=== PATIENT | male | born 1950 | race Caucasian/White ===

== ENCOUNTER 2016-07-12 05:59 | Emergency (ER) | payer MEDICARE ==
[2014-07-01 15:47] VITALS: BMI 21.7
[~2016-07-12 05:59] MED LIST: LISINOPRIL10 MG PO; PRILOSEC20 MG PO
== END 2016-07-12 07:25 | disposition home or self-care (01) ==
LOC: D.ER 05:59
DX: R11.10 Vomiting, unspecified (principal); R19.7 Diarrhea, unspecified; K21.9 Gastro-esophageal reflux disease without esophagitis; Z95.0 Presence of cardiac pacemaker; F17.200 Nicotine dependence, unspecified, uncomplicated

== ENCOUNTER 2017-05-19 13:39 | Emergency (ER) | payer MEDICARE ==
[2014-07-01 15:47] VITALS: BMI 21.7
== END 2017-05-19 15:38 | disposition home or self-care (01) ==
LOC: D.ER 13:39
DX: M21.241 Flexion deformity, right finger joints (principal); K21.9 Gastro-esophageal reflux disease without esophagitis; Z95.0 Presence of cardiac pacemaker

== ENCOUNTER 2017-09-02 18:55 | Emergency (ER) | payer MEDICARE ==
[2014-07-01 15:47] VITALS: BMI 21.7
[2017-09-02 19:44] LABS: BASOPHILS 0.6 % (0-2); EOSINOPHILS 3.5 % (0-7); HEMATOCRIT 41.3 % (42.0-54.0); IMMATURE GRANULOCYTES 0.2 % (0-5); LYMPHOCYTES 27.5 % (15-50); MCH 29.7 pg (26.0-34.0); MCHC 33.9 g/dL (31.0-37.0); MCV 87.5 fL (80.0-100.0); MEAN PLATELET VOLUME 10.3 fL (7.4-10.4); MONOCYTES 6.8 % (2-11); NEUTROPHILS 61.4 % (40-80); PLATELET COUNT 202 10x3/uL (130-400); RBC 4.72 10x6/uL (4.20-6.10); RDW 13.3 % (11.5-14.5); WBC 6.6 10x3/uL (4.8-10.8)
[2017-09-02 20:11] LABS: ALBUMIN 3.5 g/dL (3.4-5.0); BILIRUBIN - TOTAL 0.15 mg/dL (0.2-1.3); CALCIUM 8.7 mg/dL (8.5-10.1); CARBON DIOXIDE 28.5 mmol/L (21.0-32.0); CREATININE - SERUM 1.1 mg/dL (0.6-1.3); POTASSIUM - SERUM 3.5 mmol/L (3.5-5.1); PROTEIN - SERUM 7.3 g/dL (6.4-8.2)
[2017-09-02 21:32] LABS: APPEARANCE CLEAR (CLEAR); BACTERIA FEW /hpf (NONE SEEN); BILIRUBIN NEGATIVE (NEGATIVE); COLOR YELLOW (YELLOW); GLUCOSE NEGATIVE (NEGATIVE); KETONE NEGATIVE (NEGATIVE); NITRITE NEGATIVE (NEGATIVE); PROTEIN NEGATIVE (NEGATIVE); RED CELLS - URINE 0-5 /hpf (0-5); UROBILINOGEN NORMAL (NORMAL); WHITE CELLS - URINE 0-5 /hpf (0-5)
== END 2017-09-02 22:25 | disposition home or self-care (01) ==
LOC: D.ER 18:55
PROVIDERS: Emergency Medicine
DX: R42 Dizziness and giddiness (principal); I10 Essential (primary) hypertension; Z91.14 Patient's other noncompliance with medication regimen

== ENCOUNTER 2018-05-31 08:44 | Inpatient (IN) | payer MEDICARE ==
[~2018-05-31] VITALS: Ht 182.9 cm; Wt 77.1 kg
[2018-05-31] VITALS (9 sets, daily range): BP systolic 130–164; BP diastolic 65–90; BMI 23.1
--- NOTE | ~2018-05-31 | MORECARE ---
CASE MANAGEMENT DISCHARGE SUMMARY PATIENT: DARWIN LENTZ UNIT: [id number] ADM DATE: 05/31/18 AGE: 67 : 49 SEX: M ROOM/BED: D.1210 AUTHOR: ADRIANA CORONADO PHYSICIAN: REFERRING PHYSICIAN: YADIRA RUSSO MD DATE OF SERVICE: 06/02/18 Discharge Plan Patient Name: DARWIN LENTZ [facility] [facility] 1950 Planned Disposition: Home Anticipated Discharge Date: Discharge Date: Expected LOS: Initial Reviewer: [email or web address] Initial Review Date: 06/02/2018 Generated: 06/02/18 3:35 pm DCPIA - Discharge Planning Initial Assessment Updated by [email or web address]: Renetta Soto on 06/02/18 2:33 pm * How many steps to enter\exit or inside your home? * PCP HARLEY MALLORY * Pharmacy [facility] * Preadmission Environment Home Alone * ADLs Independent * Equipment None * List name and contact numbers for known caregivers / representatives who currently or will assist patient after discharge: ERIC GONZALEZ - DOESN'T REMEMBER NUMBER * Verbal permission to speak to the caregivers and representatives has been obtained from the patient. N/A * Community resources currently utilized None * Additional services required to return to the preadmission environment? No * Can the patient safely return to the preadmission environment? Yes * Has this patient been hospitalized within the prior 30 days at any hospital? No Patient Name: DARWIN LENTZ Page [id number] at 1435 All edits/amendments must be made on the electronic document DICTATION DATE: 06/02/18 143 RADIATION ONCOLOGY NURSE: JAD 06/02/18 1434 RPT#: [id number] MS DATE: STATUS: ADM IN [facility] [address] [place] [address] END OF REPORT
--- NOTE | ~2018-05-31 | MORECARE ---
CASE MANAGEMENT DISCHARGE SUMMARY PATIENT: DARWIN LENTZ UNIT: [id number] ADM DATE: 05/31/18 AGE: 67 : 49 SEX: M ROOM/BED: D.1210 AUTHOR: CLIFF,DOC PHYSICIAN: REFERRING PHYSICIAN: YADIRA RUSSO MD DATE OF SERVICE: 06/02/18 Discharge Plan Patient Name: DARWIN LENTZ Facility: [facility]:[place] : 1950 Planned Disposition: Home Anticipated Discharge Date: Discharge Date: Expected LOS: Initial Reviewer: [email or web address] Initial Review Date: 06/02/2018 Generated: 06/02/18 3:48 pm Comments DCP- Discharge Planning Updated by [email or web address]: Renetta Soto on 06/02/18 1:[address] Patient Name: DARWIN LENTZ Admission Status: ER Accout number: [id number] Admission Date: 05-31-2018 : 1950 Admission Diagnosis: Attending: YADIRA RUSSO Current LOS: 2 Anticipated DC Date: Planned Disposition: Home Primary Insurance: [facility] MEDICARE SOLUTIONS Discharge Planning Comments: CM met with patient at bedside. Patient states he plans on returning to his home after discharge. Patient states he lives alone. Patient denies any discharge needs at this time. CM will continue to follow and assist with discharge planning / needs. Material Control Clerk: Renetta Soto DCPIA - Discharge Planning Initial Assessment Updated by [email or web address]: Renetta Soto on 06/02/18 2:33 pm * How many steps to enter\exit or inside your home? * PCP HARLEY MALLORY * Pharmacy [facility] * Preadmission Environment Home Alone * ADLs Independent * Equipment None * List name and contact numbers for known caregivers / representatives who currently or will assist patient after discharge: ERIC GONZALEZ - DOESN'T REMEMBER NUMBER * Verbal permission to speak to the caregivers and representatives has been obtained from the patient. N/A * Community resources currently utilized None * Additional services required to return to the preadmission environment? No * Can the patient safely return to the preadmission environment? Yes * Has this patient been hospitalized within the prior 30 days at any hospital? No Last DP export: 06/02/18 1:35 Patient Name: DARWIN LENTZ Page [id number] at 1448 All edits/amendments must be made on the electronic document DICTATION DATE: 06/02/181446 RAILROAD BRAKEMAN: JAD 06/02/181446 RPT#: [id number] DC DATE: STATUS: ADM IN [facility] [address] [place] [address] END OF REPORT
--- NOTE | ~2018-05-31 | MORECARE ---
CASE MANAGEMENT DISCHARGE SUMMARY PATIENT: DARWIN LENTZ UNIT: [id number] ADM DATE: 05/31/18 AGE: 67 : 49 SEX: M ROOM/BED: D.1210 AUTHOR: CLIFF,DOC PHYSICIAN: REFERRING PHYSICIAN: YADIRA RUSSO MD DATE OF SERVICE: 06/05/18 Discharge Plan Patient Name: DARWIN LENTZ Facility: [facility]:[place] : 1950 Planned Disposition: Home Anticipated Discharge Date: Discharge Date: 06/04/2018 Expected LOS: Initial Reviewer: [email or web address] Initial Review Date: 06/02/2018 Generated: 06/05/18 10:22 am Comments DCP- Discharge Planning Updated by [email or web address]: Renetta Soto on 06/02/18 1:[address] Patient Name: DARWIN LENTZ Admission Status: ER Accout number: [id number] Admission Date: 05-31-2018 : 1950 Admission Diagnosis: Attending: YADIRA RUSSO Current LOS: 2 Anticipated DC Date: Planned Disposition: Home Primary Insurance: [facility] MEDICARE SOLUTIONS Discharge Planning Comments: CM met with patient at bedside. Patient states he plans on returning to his home after discharge. Patient states he lives alone. Patient denies any discharge needs at this time. CM will continue to follow and assist with discharge planning / needs. Stoneworker: Renetta Soto DCPIA - Discharge Planning Initial Assessment Updated by [email or web address]: Renetta Soto on 06/02/18 2:33 pm * How many steps to enter\exit or inside your home? * PCP HARLEY MALLORY * Pharmacy [facility] * Preadmission Environment Home Alone * ADLs Independent * Equipment None * List name and contact numbers for known caregivers / representatives who currently or will assist patient after discharge: ERIC GONZALEZ - DOESN'T REMEMBER NUMBER * Verbal permission to speak to the caregivers and representatives has been obtained from the patient. N/A * Community resources currently utilized None * Additional services required to return to the preadmission environment? No * Can the patient safely return to the preadmission environment? Yes * Has this patient been hospitalized within the prior 30 days at any hospital? No Last DP export: 06/02/18 1:48 Patient Name: DARWIN LENTZ Page [id number] at 0922 All edits/amendments must be made on the electronic document DICTATION DATE: 06/05/18920 PRIMARY HEALTH CARE NURSE: JAD 06/05/18920 RPT#: [id number] DC DATE:06/04/18 STATUS: DIS IN [facility] [address] [place] [address] END OF REPORT
[2018-05-31 10:20] LABS: BASOPHILS 0.2 % (0-2); EOSINOPHILS 0.4 % (0-7); HEMATOCRIT 45.8 % (42.0-54.0); HEMOGLOBIN 15.7 g/dL (13.5-17.5); IMMATURE GRANULOCYTES 0.2 % (0-5); LYMPHOCYTES 9.3 % (15-50); MCH 30.7 pg (26.0-34.0); MCHC 34.3 g/dL (31.0-37.0); MCV 89.5 fL (80.0-100.0); MEAN PLATELET VOLUME 10.8 fL (7.4-10.4); MONOCYTES 5.8 % (2-11); NEUTROPHILS 84.1 % (40-80); PLATELET COUNT 222 10x3/uL (130-400); RBC 5.12 10x6/uL (4.20-6.10); WBC 10.1 10x3/uL (4.8-10.8)
[2018-05-31 10:33] LABS: ALBUMIN 3.7 g/dL (3.4-5.0); ALKALINE PHOSPHATASE 78 U/L (46-116); ALT (SGPT) 35 U/L (10-68); BILIRUBIN - TOTAL 0.35 mg/dL (0.2-1.3); CALC OSMOLALITY 278 mosm/kg (275-300); CALCIUM 9.7 mg/dL (8.5-10.1); CARBON DIOXIDE 30.3 mmol/L (21.0-32.0); CHLORIDE - SERUM 105 mmol/L (98-107); GLUCOSE 134 mg/dL (74-106); POTASSIUM - SERUM 3.9 mmol/L (3.5-5.1); PROTEIN - SERUM 7.9 g/dL (6.4-8.2); SODIUM 137 mmol/L (136-145); UREA NITROGEN 21 mg/dL (7-18); eGFR NON AFRICAN AMERICAN 79 mL/min (90-120)
[2018-05-31 10:36] LABS: AMYLASE - SERUM 54 U/L (25-115); LIPASE 186 U/L (73-393); TROPONIN-I < 0.017 ng/mL (0.000-0.060)
[2018-06-01 04:00] VITALS: BP 145/79
[2018-06-01 06:54] LABS: BASOPHILS 0.1 % (0-2); EOSINOPHILS 0.7 % (0-7); HEMATOCRIT 41.6 % (42.0-54.0); HEMOGLOBIN 13.7 g/dL (13.5-17.5); IMMATURE GRANULOCYTES 0.1 % (0-5); LYMPHOCYTES 14.7 % (15-50); MCH 29.8 pg (26.0-34.0); MCHC 32.9 g/dL (31.0-37.0); MCV 90.4 fL (80.0-100.0); MEAN PLATELET VOLUME 10.6 fL (7.4-10.4); MONOCYTES 10.8 % (2-11); NEUTROPHILS 73.6 % (40-80); PLATELET COUNT 205 10x3/uL (130-400); RDW 14.3 % (11.5-14.5)
[2018-06-01 07:08] LABS: APTT 28.2 SECONDS (22.8-39.4); INR 1.07 (0.85-1.17); PROTIME 13.6 SECONDS (11.6-15.0)
[2018-06-01 07:15] VITALS: BP 131/67
[2018-06-01 07:37] LABS: ALBUMIN 3.1 g/dL (3.4-5.0); ALKALINE PHOSPHATASE 64 U/L (46-116); ALT (SGPT) 28 U/L (10-68); BILIRUBIN - TOTAL 0.42 mg/dL (0.2-1.3); CALC OSMOLALITY 287 mosm/kg (275-300); CALCIUM 8.5 mg/dL (8.5-10.1); CARBON DIOXIDE 27.7 mmol/L (21.0-32.0); CHLORIDE - SERUM 108 mmol/L (98-107); GLUCOSE 118 mg/dL (74-106); POTASSIUM - SERUM 3.8 mmol/L (3.5-5.1); PROTEIN - SERUM 6.7 g/dL (6.4-8.2); SODIUM 143 mmol/L (136-145); UREA NITROGEN 18 mg/dL (7-18); eGFR NON AFRICAN AMERICAN 79 mL/min (90-120)
[2018-06-01 07:38] LABS: APPEARANCE HAZY (CLEAR); BILIRUBIN NEGATIVE (NEGATIVE); COLOR YELLOW (YELLOW); GLUCOSE NEGATIVE (NEGATIVE); KETONE NEGATIVE (NEGATIVE); NITRITE NEGATIVE (NEGATIVE); PROTEIN NEGATIVE (NEGATIVE); SPECIFIC GRAVITY 1.015 (1.005-1.020); UROBILINOGEN NORMAL (NORMAL)
[2018-06-01 11:15] VITALS: BP 143/78
[2018-06-01 15:37] VITALS: BP 150/75
[2018-06-01 19:38] VITALS: BP 155/79
[2018-06-02] VITALS: BP 138/69
[2018-06-02 04:00] VITALS: BP 140/65
[2018-06-02 06:43] LABS: BASOPHILS 0.4 % (0-2); EOSINOPHILS 1.7 % (0-7); HEMATOCRIT 38.4 % (42.0-54.0); HEMOGLOBIN 12.8 g/dL (13.5-17.5); IMMATURE GRANULOCYTES 0.1 % (0-5); LYMPHOCYTES 15.4 % (15-50); MCH 29.7 pg (26.0-34.0); MCHC 33.3 g/dL (31.0-37.0); MCV 89.1 fL (80.0-100.0); MEAN PLATELET VOLUME 10.4 fL (7.4-10.4); MONOCYTES 11.2 % (2-11); NEUTROPHILS 71.2 % (40-80); PLATELET COUNT 185 10x3/uL (130-400); RBC 4.31 10x6/uL (4.20-6.10); RDW 13.9 % (11.5-14.5); WBC 7.1 10x3/uL (4.8-10.8)
[2018-06-02 07:15] LABS: CALC OSMOLALITY 281 mosm/kg (275-300); CARBON DIOXIDE 24.9 mmol/L (21.0-32.0); CHLORIDE - SERUM 108 mmol/L (98-107); CREATININE - SERUM 0.9 mg/dL (0.6-1.3); GLUCOSE 96 mg/dL (74-106); POTASSIUM - SERUM 3.6 mmol/L (3.5-5.1); SODIUM 141 mmol/L (136-145); UREA NITROGEN 16 mg/dL (7-18); eGFR NON AFRICAN AMERICAN 89 mL/min (90-120)
[2018-06-02 08:02] VITALS: Ht 182.9 cm; Wt 77.1 kg
[2018-06-02 08:50] VITALS: BP 137/64
[2018-06-02 11:29] VITALS: BP 107/69
[2018-06-02 15:19] VITALS: BP 111/69
[2018-06-02 19:40] VITALS: BP 142/68
[2018-06-03] VITALS: BP 137/70
[2018-06-03 04:00] VITALS: BP 150/86
[2018-06-03 05:38] LABS: BASOPHILS 0.3 % (0-2); EOSINOPHILS 2.9 % (0-7); HEMATOCRIT 37.7 % (42.0-54.0); HEMOGLOBIN 12.9 g/dL (13.5-17.5); IMMATURE GRANULOCYTES 0.2 % (0-5); LYMPHOCYTES 20.5 % (15-50); MCH 29.9 pg (26.0-34.0); MCHC 34.2 g/dL (31.0-37.0); MCV 87.5 fL (80.0-100.0); MEAN PLATELET VOLUME 10.7 fL (7.4-10.4); NEUTROPHILS 65.1 % (40-80); PLATELET COUNT 189 10x3/uL (130-400); RBC 4.31 10x6/uL (4.20-6.10); RDW 13.6 % (11.5-14.5); WBC 6.2 10x3/uL (4.8-10.8)
[2018-06-03 06:01] LABS: CALC OSMOLALITY 278 mosm/kg (275-300); CALCIUM 7.9 mg/dL (8.5-10.1); CARBON DIOXIDE 24.4 mmol/L (21.0-32.0); CHLORIDE - SERUM 107 mmol/L (98-107); CREATININE - SERUM 0.9 mg/dL (0.6-1.3); GLUCOSE 109 mg/dL (74-106); POTASSIUM - SERUM 3.4 mmol/L (3.5-5.1); SODIUM 139 mmol/L (136-145); UREA NITROGEN 13 mg/dL (7-18); eGFR NON AFRICAN AMERICAN 89 mL/min (90-120)
[2018-06-03 07:16] VITALS: BP 140/74
[2018-06-03 10:35] VITALS: BP 145/76
[2018-06-03 14:53] VITALS: BP 157/74
[2018-06-03 19:47] VITALS: BP 147/80
[2018-06-04] VITALS: BP 157/80
[2018-06-04 04:00] VITALS: BP 137/67
[2018-06-04 07:06] LABS: BASOPHILS 0.4 % (0-2); EOSINOPHILS 4.4 % (0-7); HEMATOCRIT 40.6 % (42.0-54.0); HEMOGLOBIN 13.9 g/dL (13.5-17.5); IMMATURE GRANULOCYTES 0.2 % (0-5); LYMPHOCYTES 23.1 % (15-50); MCH 29.8 pg (26.0-34.0); MCHC 34.2 g/dL (31.0-37.0); MCV 86.9 fL (80.0-100.0); MEAN PLATELET VOLUME 10.9 fL (7.4-10.4); MONOCYTES 11.1 % (2-11); NEUTROPHILS 60.8 % (40-80); PLATELET COUNT 213 10x3/uL (130-400); RBC 4.67 10x6/uL (4.20-6.10); RDW 13.5 % (11.5-14.5); WBC 5.4 10x3/uL (4.8-10.8)
[2018-06-04 07:09] VITALS: BP 162/87
[2018-06-04 07:15] LABS: CALC OSMOLALITY 277 mosm/kg (275-300); CALCIUM 8.1 mg/dL (8.5-10.1); CARBON DIOXIDE 23.7 mmol/L (21.0-32.0); CHLORIDE - SERUM 106 mmol/L (98-107); CREATININE - SERUM 0.9 mg/dL (0.6-1.3); GLUCOSE 103 mg/dL (74-106); POTASSIUM - SERUM 3.4 mmol/L (3.5-5.1); SODIUM 139 mmol/L (136-145); UREA NITROGEN 12 mg/dL (7-18); eGFR NON AFRICAN AMERICAN 89 mL/min (90-120)
[2018-06-04 10:52] VITALS: BP 163/88
[2018-06-04 14:53] VITALS: BP 175/85
[2018-06-08 14:23] LABS: OVA + PARASITE EXAM Final report (())
== END 2018-06-04 18:48 | disposition home or self-care (01) | DRG 378 ==
LOC: D.ER 08:44 → D.ICU 11:57 → D.M3 11:57
PROVIDERS: Family Medicine; Internal Medicine Gastroenterology; Internal Medicine Nephrology
PROC: 0DB68ZX Excision of Stomach, Via Natural or Artificial Opening Endoscopic, Diagnostic (ICD-10-PCS; 2018-05-31)
PROC: 0DB98ZX Excision of Duodenum, Via Natural or Artificial Opening Endoscopic, Diagnostic (ICD-10-PCS; principal; 2018-05-31 14:45)
DX: K29.01 Acute gastritis with bleeding (principal); K56.7 Ileus, unspecified; D62 Acute posthemorrhagic anemia; N17.9 Acute kidney failure, unspecified; D68.9 Coagulation defect, unspecified; I69.351 Hemiplegia and hemiparesis following cerebral infarction affecting right dominant side; N39.0 Urinary tract infection, site not specified; K44.9 Diaphragmatic hernia without obstruction or gangrene; K52.9 Noninfective gastroenteritis and colitis, unspecified; T50.905A Adverse effect of unspecified drugs, medicaments and biological substances, initial encounter; I48.91 Unspecified atrial fibrillation; Z79.01 Long term (current) use of anticoagulants

== ENCOUNTER → 2019-03-05 09:35 | Outpatient (CLI) | payer MEDICARE ==
[2018-06-02 08:02] VITALS: BMI 23.0
== END | disposition home or self-care (01) ==
LOC: D.HCCARDIO 09:35
PROVIDERS: ATTEND Internal Medicine Cardiovascular Disease
DX: I34.0 Nonrheumatic mitral (valve) insufficiency (principal)

== ENCOUNTER 2020-01-21 16:44 | Emergency (ER) | payer MEDICARE ==
[~2020-01-21] VITALS: Ht 182.9 cm; Wt 79.5 kg
[2020-01-21 16:51] VITALS: Ht 182.9 cm; Wt 79.5 kg
[2020-01-21 17:48] LABS: HEMATOCRIT 41.1 % (42.0-54.0); HEMOGLOBIN 13.4 g/dL (13.5-17.5); LYMPHOCYTES 22.4 % (15-50); MCH 28.9 pg (26.0-34.0); MCHC 32.6 g/dL (31.0-37.0); MCV 88.8 fL (80.0-100.0); MEAN PLATELET VOLUME 9.7 fL (7.4-10.4); NEUTROPHILS 68.1 % (40-80); PLATELET COUNT 216 10x3/uL (130-400); RBC 4.63 10x6/uL (4.20-6.10); RDW 14.3 % (11.5-14.5); WBC 6.4 10x3/uL (4.8-10.8)
[2020-01-21 18:14] LABS: APTT 30.3 SECONDS (22.8-39.4); CALC OSMOLALITY 277 mosm/kg (275-300); CALCIUM 8.3 mg/dL (8.5-10.1); CHLORIDE - SERUM 106 mmol/L (98-107); CREATININE - SERUM 1.1 mg/dL (0.6-1.3); GLUCOSE 106 mg/dL (74-106); INR 0.96 (0.85-1.17); POTASSIUM - SERUM 3.7 mmol/L (3.5-5.1); PROTIME 12.8 SECONDS (11.6-15.0); SODIUM 138 mmol/L (136-145); UREA NITROGEN 18 mg/dL (7-18); eGFR NON AFRICAN AMERICAN 70 mL/min (90-120)
[2020-01-21 18:28] LABS: ALBUMIN 3.2 g/dL (3.4-5.0); ALKALINE PHOSPHATASE 83 U/L (30-120); ALT (SGPT) 21 U/L (10-68); BILIRUBIN - TOTAL 0.29 mg/dL (0.2-1.3); CKMB 3.2 U/L (0.0-3.6); CREATINE KINASE 212 UL (21-232); MAGNESIUM - SERUM 2.2 mg/dL (1.8-2.4)
[2020-01-21 18:29] LABS: TROPONIN-I 0.016 ng/mL (0.000-0.060)
[2020-01-21] MEDS ORDERED: PROTONIX40 MG PO (19:35)
[2020-01-21 20:08] VITALS: BP 178/97
== END 2020-01-21 20:09 | disposition home or self-care (01) ==
LOC: D.ER 16:44
DX: K21.9 Gastro-esophageal reflux disease without esophagitis (principal); R07.9 Chest pain, unspecified

== ENCOUNTER 2020-04-23 09:12 | Emergency (ER) | payer MEDICARE ==
[~2020-04-23] VITALS: Ht 182.9 cm; Wt 77.3 kg
[~2020-04-23 09:12] MED LIST changes: +PROTONIX40 MG PO
[2020-04-23 09:20] VITALS: Ht 182.9 cm; Wt 77.3 kg
[2020-04-23 10:13] LABS: BASOPHILS 0.6 % (0-2); HEMATOCRIT 39.5 % (42.0-54.0); HEMOGLOBIN 12.9 g/dL (13.5-17.5); IMMATURE GRANULOCYTES 0.2 % (0-5); LYMPHOCYTES 22.2 % (15-50); MCH 29.3 pg (26.0-34.0); MCHC 32.7 g/dL (31.0-37.0); MCV 89.8 fL (80.0-100.0); MEAN PLATELET VOLUME 9.7 fL (7.4-10.4); MONOCYTES 11.6 % (2-11); NEUTROPHILS 61.4 % (40-80); PLATELET COUNT 212 10x3/uL (130-400); RDW 14.2 % (11.5-14.5)
[2020-04-23 10:32] LABS: APTT 26.6 SECONDS (22.8-39.4); CALC OSMOLALITY 280 mosm/kg (275-300); CALCIUM 8.9 mg/dL (8.5-10.1); CARBON DIOXIDE 27.1 mmol/L (21.0-32.0); CHLORIDE - SERUM 106 mmol/L (98-107); GLUCOSE 106 mg/dL (74-106); INR 0.98 (0.85-1.17); POTASSIUM - SERUM 3.6 mmol/L (3.5-5.1); PROTIME 12.9 SECONDS (11.6-15.0); SODIUM 139 mmol/L (136-145); UREA NITROGEN 22 mg/dL (7-18); eGFR NON AFRICAN AMERICAN 78 mL/min (90-120)
[2020-04-23 10:46] LABS: ALBUMIN 3.3 g/dL (3.4-5.0); ALKALINE PHOSPHATASE 76 U/L (30-120); ALT (SGPT) 33 U/L (10-68); BILIRUBIN - TOTAL 0.33 mg/dL (0.2-1.3); CKMB 9.7 U/L (0.0-3.6); CREATINE KINASE 436 UL (21-232); MAGNESIUM - SERUM 1.9 mg/dL (1.8-2.4); PROTEIN - SERUM 7.1 g/dL (6.4-8.2)
[2020-04-23 10:52] LABS: TROPONIN-I < 0.017 ng/mL (0.000-0.060)
[2020-04-23 11:23] LABS: BILIRUBIN NEGATIVE (NEGATIVE); KETONE NEGATIVE (NEGATIVE); NITRITE NEGATIVE (NEGATIVE); UROBILINOGEN NORMAL mg/dL (< 2)
[2020-04-23] MEDS ORDERED: AUGMENTIN 875-11 TAB PO (11:32)
[2020-04-23 12:35] VITALS: BP 164/94
== END 2020-04-23 12:35 | disposition home or self-care (01) ==
LOC: D.ER 09:12
PROVIDERS: Family Medicine
DX: S01.01XA Laceration without foreign body of scalp, initial encounter (principal); R42 Dizziness and giddiness; W19.XXXA Unspecified fall, initial encounter; I20.9 Angina pectoris, unspecified